=== PATIENT | female | born 1965 | race Caucasian/White ===

== ENCOUNTER 2020-07-12 21:00 | Emergency (ER) | payer BC ==
[~2020-07-12] VITALS: Ht 167.6 cm; Wt 63.5 kg
[2020-07-12] MEDS ORDERED: ONDANSETRON ODT 4 MG TAB.RAPDIS SL ONE (22:00)
[2020-07-12] MEDS ORDERED: IV NORMAL SALINE 1000 ML BAG IV ONE (22:00)
[2020-07-12] MEDS ORDERED: ONDANSETRON ODT 4 MG TAB.RAPDIS ONE (22:03)
[2020-07-12] MEDS ORDERED: KETOROLAC TROMETHAMINE 30 MG INJ IVP ONE (22:45)
[2020-07-12] MEDS ORDERED: OXYC-128 PO (23:03)
[2020-07-12] MEDS ORDERED: ONDA4TAB5 GT (23:03)
--- NOTE | 2020-07-12 23:29 | NUR ---
Patient discharged to home in stable condition. Written and verbal after care instructions given. Patient verbalizes understanding of instructions. Stressed follow up or return to ER for worsening s/s.
[2020-07-13 00:26] VITALS: BP 115/70
== END 2020-07-12 23:29 | disposition home or self-care (01) ==
LOC: ER 21:04
DX: R11.2 Nausea with vomiting, unspecified (principal); R51.9 Headache, unspecified
CPT/HCPCS: A4663; J7030; Q0162